=== PATIENT | male | born 2000 | race Caucasian/White ===

== ENCOUNTER 2023-03-21 18:45 | Emergency (ER) | payer OTHER, SELFPAY ==
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
[2023-03-21 18:58] VITALS: BP 132/69; PULSE 72; RESP 16; TEMP 36.8; O2SAT 100
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
== END 2023-03-21 20:14 | disposition home or self-care (01) ==
PROVIDERS: Emergency Provider Nurse Practitioner Family
DX: S62.316A Displaced fracture of base of fifth metacarpal bone, right hand, initial encounter for closed fracture (principal); W51.XXXA Accidental striking against or bumped into by another person, initial encounter
CPT/HCPCS: 29125; 73130; 99214; A4565; G0463